=== PATIENT | female | born 1945 | race Caucasian/White ===

== ENCOUNTER → 2016-08-26 | Outpatient (CLI) | payer OTHER, MEDICARE | LOC: RAD 04:58 | DX: Z12.31 Encounter for screening mammogram for malignant neoplasm of breast (principal) ==

== ENCOUNTER → 2016-12-02 | Outpatient (CLI) | payer OTHER, MEDICARE | LOC: CAT 12:37 | DX: K74.60 Unspecified cirrhosis of liver (principal); R10.2 Pelvic and perineal pain ==

== ENCOUNTER → 2017-09-07 | Outpatient (CLI) | payer OTHER, MEDICARE ==
[~2017-09-07] MED LIST: ALLOPURINOL 10100 M1 PO; AMITRIPTYLINE100 MG PO; ASPIR 8181 MG PO; AVALIDE 150-121 EACH PO; B-12500 MC1 SL; BENADRYL25 MG PO; DAYPRO600 MG PO; ESTROVEN 155 M155 MG PO; GLUCOTROL5 MG PO; INVOKANA100 MG PO; IRON325 PO; LIPITOR10 MG PO; MACROBID 100 M100 M1 PO; MAGNESIUM OXID400 MG PO; METFORMIN HCL500 MG PO; NORVASC5 MG PO; OMEGA-31000 M1 PO; OSTEO BI-FLEX1 EAC1 PO; PROTONIX40 M1 PO; REQUIP0.5 MG PO; TOVIAZ4 M1 PO; UNICOMPLEX M TA1 TA1 PO; VICTOZA0.6 MG/0.1 SUBQ
== END ==
LOC: RAD 01:27
DX: Z12.31 Encounter for screening mammogram for malignant neoplasm of breast (principal); D64.9 Anemia, unspecified

== ENCOUNTER → 2018-09-18 | Outpatient (CLI) | payer OTHER, MEDICARE | LOC: RAD 02:19 | DX: Z12.31 Encounter for screening mammogram for malignant neoplasm of breast (principal) ==

== ENCOUNTER → 2019-12-25 | Outpatient (CLI) | payer OTHER, MEDICARE | LOC: BC 10-15 21:18 | DX: Z12.31 Encounter for screening mammogram for malignant neoplasm of breast (principal) ==

== ENCOUNTER → 2021-04-20 | Outpatient (CLI) | payer OTHER, MEDICARE | LOC: BC 03-03 13:49 | PROVIDERS: ATTEND Internal Medicine | DX: Z12.31 Encounter for screening mammogram for malignant neoplasm of breast (principal) ==